=== PATIENT | female | born 1980 | race American Indian/Alaskan Native ===

== ENCOUNTER 2020-09-14 05:50 | Emergency (ER) | payer SELFPAY ==
[2020-09-14 07:29] VITALS: BP 185/112
--- NOTE | 2020-09-14 07:45 | Emergency Department Report ---
ED General Adult HPI - General Chief complaint: Extremity Injury, Lower Stated complaint: PAIN BOTH LEGS/ARMS AND HEADACHE Time Seen by Provider: 09/14/20 07:29 Source: patient Mode of arrival: Ambulatory Limitations: No Limitations - History of Present Illness Initial comments: Is a pleasant 39-year-old female presents to the emergency department with a chief complaint of bilateral leg pain that has been ongoing for the past many years but has been more constant and worse over the past few days. She reports pain is worse in the right leg and starts in her back and radiates down the back of her leg. She has been seen as a walk-in clinic recently and had x-rays of her back that were apparently normal. She denies any associated fever, chills, night sweats, headache, dizziness, blurry vision, nausea, vomit, diarrhea, chest pain, shortness of breath, weakness or any other associated symptoms. Her pain is aggravated by movement. She denies any alleviating factors. She has past medical history of hypertension and takes lisinopril but did not take her medications this morning. - Related Data Previous Rx's Medication Instructions Recorded Last Taken Type Naproxen [EC-Naprosyn] 500 mg PO BID #20 tablet. 09/14/20 Unknown Rx methOCARBAMOL [Robaxin TAB] 500 mg PO Q6H #20 tablet 09/14/20 Unknown Rx methylPREDNISolone [Medrol 4MG 4 mg PO ONCE #1 tab.ds.pk 09/14/20 Unknown Rx DOSEPAK (21 tabs)] Allergies Allergy/AdvReac Type Severity Reaction Status Date / Time No Known Allergies Allergy Unverified 09/14/20 07:26 ED Review of Systems ROS: Stated complaint: PAIN BOTH LEGS/ARMS AND HEADACHE Other details as noted in HPI Comment: All other systems reviewed and negative Constitutional: denies: chills, fever Eyes: denies: eye pain, eye discharge, vision change ENT: denies: ear pain, throat pain Respiratory: denies: cough, shortness of breath, wheezing Cardiovascular: denies: chest pain, palpitations Endocrine: no symptoms reported Gastrointestinal: denies: abdominal pain, nausea, diarrhea Genitourinary: denies: urgency, dysuria, discharge Musculoskeletal: as per HPI, arthralgia. denies: back pain, joint swelling Skin: denies: rash, lesions Neurological: denies: headache, weakness, paresthesias Psychiatric: denies: anxiety, depression Hematological/Lymphatic: denies: easy bleeding, easy bruising ED Past Medical Hx - Past Medical History Previous Medical History?: Yes Hx Hypertension: Yes - Surgical History Past Surgical History?: No - Social History Smoking Status: Never Smoker Substance Use Type: None - Medications Home Medications: Home Medications Medication Instructions Recorded Confirmed Last Taken Type Naproxen [EC-Naprosyn] 500 mg PO BID #20 tablet.dr 09/14/20 Unknown Rx methOCARBAMOL [Robaxin TAB] 500 mg PO Q6H #20 tablet 09/14/20 Unknown Rx methylPREDNISolone [Medrol 4MG 4 mg PO ONCE #1 tab.ds.pk 09/14/20 Unknown Rx DOSEPAK (21 tabs)] ED Physical Exam - General Limitations: No Limitations General appearance: alert, in no apparent distress - Head Head exam: Present: atraumatic, normocephalic - Eye Eye exam: Present: normal appearance, PERRL, EOMI Pupils: Present: normal accommodation - ENT ENT exam: Present: normal exam, normal orophraynx, mucous membranes moist - Neck Neck exam: Present: normal inspection, full ROM. Absent: tenderness, meningismus - Respiratory Respiratory exam: Present: normal lung sounds bilaterally. Absent: respiratory distress, wheezes, rales, rhonchi, stridor - Cardiovascular Cardiovascular Exam: Present: regular rate, normal rhythm, normal heart sounds. Absent: systolic murmur, diastolic murmur, rubs, gallop - GI/Abdominal GI/Abdominal exam: Present: soft, normal bowel sounds. Absent: distended, tenderness, guarding, rebound, rigid, pulsatile mass - Extremities Exam Extremities exam: Present: normal inspection, full ROM, tenderness (There is tenderness to palpation over the right upper gluteal muscles and paraspinal area of the lumbar spine. No midline tenderness to the cervical, thoracic or lumbar spine. There is steady gait.), normal capillary refill. Absent: joint swelling, calf tenderness (No posterior calf tenderness, normal DP and PT pulses. Negative Homans' sign bilaterally) - Back Exam Back exam: Present: normal inspection, full ROM, tenderness, muscle spasm, paraspinal tenderness. Absent: CVA tenderness (R), CVA tenderness (L), vertebral tenderness - Neurological Exam Neurological exam: Present: alert, oriented X3, CN II-XII intact, normal gait - Psychiatric Psychiatric exam: Present: normal affect, normal mood - Skin Skin exam: Present: warm, dry, intact, normal color. Absent: rash ED Course Vital Signs 09/14/20 07:26 Temperature 98.4 F Pulse Rate 86 Respiratory 16 Rate Blood Pressure 185/112 O2 Sat by Pulse 98 Oximetry - Reevaluation(s) Reevaluation #1: 09/14/20 09:37 09/14/20 09:38 ED Medical Decision Making - Medical Decision Making Patient nontoxic in no acute distress. She denies any saddle anesthesia, urinary or bowel incontinence, urinary retention making cauda equina or conus medullaris syndrome unlikely. She has no history of cancer making metastatic disease unlikely. She has no flank pain or hematuria and no CVA tenderness making nephrolithiasis unlikely. She had no dysuria, frequency, urgency, fever making pyelonephritis unlikely. She had no injury making spinal epidural hematoma or fracture unlikely. She had no fever or history of IV drug use making spinal epidural abscess unlikely. She has no pulsatile mass in the abdomen with normal equal bilateral femoral pulses making aortic aneurysm or aortic dissection unlikely patient was tender to palpation over the upper gluteal muscles over the sciatic region as well as to the paraspinal area of the lumbar spine. She had full flexion extension of the spine. She had no neurologic symptoms. I will treat her with anti-inflammatories, short course of steroids and muscle relaxers and recommended neurosurgery or orthopedic follow-up. She was instructed to return to the ER immediately she develops any change or worsening symptoms specifically urinary or bowel incontinence, urinary retention or saddle anesthesia. She verbalized understanding instructions and all of her questions were answered. I also educated the patient to go home and take her blood pre ssure medication and follow-up with her primary care doctor regarding blood pressure management. - Differential Diagnosis Strain, sprain brain, HNP Critical care attestation.: If time is entered above; I have spent that time in minutes in the direct care of this critically ill patient, excluding procedure time. ED Disposition Clinical Impression: Lumbosacral radiculopathy Disposition: DC-01 TO HOME OR SELFCARE Is pt being admited?: No Condition: Stable Instructions: Lumbosacral Radiculopathy Prescriptions: Naproxen [EC-Naprosyn] 500 mg PO BID #20 tablet. methylPREDNISolone [Medrol 4MG DOSEPAK (21 tabs)] 4 mg PO ONCE #1 tab.ds.pk methOCARBAMOL [Robaxin TAB] 500 mg PO Q6H #20 tablet Referrals: [facility] [Provider Group] - 3-5 Days Forms: Work/School Release Form(ED) Time of Disposition: 09:40
[2020-09-14 09:07] LABS: HCG Qualitative,Urine Negative (Negative)
== END 2020-09-14 09:47 | disposition home or self-care (01) ==
LOC: ED 05:50
DX: M54.17 Radiculopathy, lumbosacral region (principal); I10 Essential (primary) hypertension; Z79.899 Other long term (current) drug therapy
CPT/HCPCS: 81025; 99283

== ENCOUNTER 2021-12-10 19:21 | Emergency (ER) | payer BC, MEDICAID ==
[2021-12-10] MEDS ORDERED: ACETAMINOPHEN 500 MG TAB PO ONE (23:47)
[2021-12-10] MEDS ORDERED: hydrALAZINE 25 MG TAB PO ONE (23:47)
--- NOTE | 2021-12-11 00:28 | XRay Report ---
XR chest 1V ap INDICATION / CLINICAL INFORMATION: dyspnea. COMPARISON: None available. FINDINGS: Findings in the chest are accentuated by body habitus and phase of inspiration. SUPPORT DEVICES: None. HEART /PULMONARY VASCULATURE: No significant abnormality. LUNGS / PLEURA: Diminished lung volumes. No evidence of focal infiltrate. No sizable pleural effusion . No pneumothorax. ADDITIONAL FINDINGS: No significant additional findings. IMPRESSION: Diminished lung volumes. No definite acute cardiopulmonary disease. Signer Name: Primitivo Kat MD Signed: 12/11/2021 12:24 AM Workstation Name: [id number]
[2021-12-11 00:41] LABS: Mucus,Urine FEW /HPF
[2021-12-11 00:44] LABS: Color,Urine Yellow (Yellow)
[2021-12-11 00:45] LABS: Bilirubin,Urine Negative (Negative); Blood,Urine Small (Negative); PH,Urine 6.5 (5.0-7.0); Protein,Urine <15 mg/dL mg/dL (Negative)
[2021-12-11 00:53] LABS: Basophils % (Auto) 0.3 % (0.0-1.8); Eosinophils # (Auto) 0.1 K/mm3 (0.0-0.4); Hematocrit 36.4 % (30.3-42.9); Hemoglobin 12.2 gm/dl (10.1-14.3); Lymphocytes # (Auto) 1.5 K/mm3 (1.2-5.4); Lymphocytes % (Auto) 17.1 % (13.4-35.0); Mean Corpuscular HGB Conc 33 % (30-34); Mean Corpuscular Volume 85 fl (79-97); Monocytes # (Auto) 1.1 K/mm3 (0.0-0.8); Monocytes % (Auto) 12.2 % (0.0-7.3); Platelet Count 322 K/mm3 (140-440); Red Blood Count 4.27 M/mm3 (3.65-5.03); Red Cell Distribution Width 15.1 % (13.2-15.2)
[2021-12-11 00:58] LABS: Alanine Aminotransferase 15 units/L (7-56); Albumin 4.4 g/dL (3.9-5); BUN/Creatinine Ratio 11; Blood Urea Nitrogen 11 mg/dL (7-17); Hemolysis Index 5
--- NOTE | 2021-12-11 03:00 | Emergency Department Report ---
- General Chief Complaint: High BP Stated Complaint: BLURRES VISION/BLOOD PRESSURE/BODY HURT Source: patient Mode of arrival: Ambulatory Limitations: No Limitations - History of Present Illness Initial Comments: Patient is a 41-year-old -[place] female with a history of hypertension who presents to the ED with complaint of acute onset persistent diffuse body aches and pains, nasal and sinus congestion, frontal sinus pressure, persistent dry cough, intermittent fever and chills and generalized weakness for the last 1 week, worse in the last 3 days. Patient also states that her blood pressure has been significantly elevated despite taking her regular medications. Patient states that no one else at home is had similar symptoms. Patient denies chest pain, shortness of breath, nausea and vomiting or diarrhea, dysuria, urinary frequency and urgency, sore throat, dysphagia or dysphonia, hematemesis or hematochezia. MD Complaint: fever, cough, rhinorrhea, nasal congestion, sinus pain, other (Diffuse body aches and pains) -: Sudden, week(s) (1) Severity: moderate Severity scale (0 -10): 6 Quality: sharp, aching Consistency: constant Improves With: nothing Worsens With: nothing Associated Symptoms: denies other symptoms, fever, chills, myalgias, headache, rhinorrhea, nasal congestion, cough. denies: sore throat, stiff neck, chest pain, shortness of breath, abdominal pain, nausea, vomiting, diarrhea, dysuria, rash, confusion, weight loss, epistaxis, hoarseness, ear pain Treatments Prior to Arrival: none - Related Data Previous Rx's Medication Instructions Recorded Last Taken Type Naproxen [EC-Naprosyn] 500 mg PO BID #20 tablet.dr 09/14/20 Unknown Rx methOCARBAMOL [Robaxin TAB] 500 mg PO Q6H #20 tablet 09/14/20 Unknown Rx methylPREDNISolone [Medrol 4MG 4 mg PO ONCE #1 tab.ds.pk 09/14/20 Unknown Rx DOSEPAK (21 tabs)] Ascorbic Acid [Vitamin C] 1,000 mg PO BID #40 tab 12/11/21 Unknown Rx Benzonatate [Tessalon Perles] 100 mg PO Q8HR #30 cap 12/11/21 Unknown Rx Cetirizine HCl [Zyrtec 10mg tab] 10 mg PO DAILY #30 tab 12/11/21 Unknown Rx Ibuprofen [Motrin] 800 mg PO Q8HR PRN #30 tablet 12/11/21 Unknown Rx Zinc Acetate [Galzin 50mg CAP] 50 mg PO DAILY #30 cap 12/11/21 Unknown Rx Allergies Allergy/AdvReac Type Severity Reaction Status Date / Time No Known Allergies Allergy Unverified 09/14/20 07:26 ED Review of Systems ROS: Stated complaint: BLURRES VISION/BLOOD PRESSURE/BODY HURT Other details as noted in HPI Constitutional: chills, fever, malaise, weakness Eyes: denies: eye pain, eye discharge, vision change ENT: congestion. denies: ear pain, throat pain Respiratory: cough. denies: shortness of breath, wheezing Cardiovascular: denies: chest pain, palpitations Endocrine: no symptoms reported Gastrointestinal: denies: abdominal pain, nausea, vomiting, diarrhea Genitourinary: denies: urgency, dysuria, discharge Musculoskeletal: back pain, arthralgia, myalgia. denies: joint swelling Skin: denies: rash, lesions Neurological: headache. denies: weakness, paresthesias Psychiatric: denies: anxiety, depression Hematological/Lymphatic: denies: easy bleeding, easy bruising ED Past Medical Hx - Past Medical History Hx Hypertension: Yes - Social History Smoking Status: Never Smoker Substance Use Type: None - Medications Home Medications: Home Medications Medication Instructions Recorded Confirmed Last Taken Type Naproxen [EC-Naprosyn] 500 mg PO BID #20 tablet.dr 09/14/20 Unknown Rx methOCARBAMOL [Robaxin TAB] 500 mg PO Q6H #20 tablet 09/14/20 Unknown Rx methylPREDNISolone [Medrol 4MG 4 mg PO ONCE #1 tab.ds.pk 09/14/20 Unknown Rx DOSEPAK (21 tabs)] Ascorbic Acid [Vitamin C] 1,000 mg PO BID #40 tab 12/11/21 Unknown Rx Benzonatate [Tessalon Perles] 100 mg PO Q8HR #30 cap 12/11/21 Unknown Rx Cetirizine HCl [Zyrtec 10mg tab] 10 mg PO DAILY #30 tab 12/11/21 Unknown Rx Ibuprofen [Motrin] 800 mg PO Q8HR PRN #30 tablet 12/11/21 Unknown Rx Zinc Acetate [Galzin 50mg CAP] 50 mg PO DAILY #30 cap 07/08/22 Unknown Rx ED Physical Exam - General Limitations: No Limitations General appearance: alert, in no apparent distress - Head Head exam: Present: atraumatic, normocephalic, normal inspection - Eye Eye exam: Present: normal appearance, PERRL, EOMI Pupils: Present: normal accommodation - ENT ENT exam: Present: normal exam, normal orophraynx, mucous membranes moist, TM's normal bilaterally, normal external ear exam - Neck Neck exam: Present: normal inspection, full ROM. Absent: tenderness - Respiratory Respiratory exam: Present: normal lung sounds bilaterally. Absent: respiratory distress, wheezes, rales, rhonchi, chest wall tenderness, accessory muscle use, decreased breath sounds - Cardiovascular Cardiovascular Exam: Present: normal rhythm, tachycardia, normal heart sounds. Absent: systolic murmur, diastolic murmur, rubs, gallop - GI/Abdominal GI/Abdominal exam: Present: soft, normal bowel sounds. Absent: tenderness, gu arding, rebound, hyperactive bowel sounds, hypoactive bowel sounds, mass - Extremities Exam Extremities exam: Present: normal inspection, full ROM, normal capillary refill. Absent: tenderness - Back Exam Back exam: Present: normal inspection, full ROM. Absent: tenderness, CVA tenderness (R), CVA tenderness (L), muscle spasm, paraspinal tenderness, vertebral tenderness - Neurological Exam Neurological exam: Present: alert, oriented X3, CN II-XII intact, normal gait, reflexes normal - Psychiatric Psychiatric exam: Present: normal affect, normal mood - Skin Skin exam: Present: warm, dry, intact, normal color. Absent: rash ED Course Vital Signs 12/10/21 12/10/21 12/10/21 19:49 23:54 23:58 Temperature 100.5 F H Pulse Rate 115 H 112 H 112 H Respiratory 16 14 Rate Blood Pressure 178/104 158/93 Blood Pressure 158/93 [Left] O2 Sat by Pulse 100 100 Oximetry 12/11/21 03:15 Temperature Pulse Rate 102 H Respiratory 12 Rate Blood Pressure Blood Pressure 151/82 [Left] O2 Sat by Pulse 100 Oximetry ED Medical Decision Making - Lab Data Result diagrams: 12/11/21 00:21 12/11/21 00:21 - Radiology Data Radiology results: report reviewed, image reviewed [facility] [address] [place] [address] XRay Report Signed Patient: JAZ SCHUMACHER MR#: [id number] : 1980 Acct:[id number] Age/Sex: 41 / F ADM Date: 12/10/21 Loc: ED Attending Dr: Ordering Physician: BRAD HARE Date of Service: 12/10/21 Procedure(s): XR chest 1V ap Accession Number(s): [id number] cc: BRAD HARE Fluoro Time In Minutes: XR chest 1V ap INDICATION / CLINICAL INFORMATION: dyspnea. COMPARISON: None available. FINDINGS: Findings in the chest are accentuated by body habitus and phase of inspiration. SUPPORT DEVICES: None. HEART /PULMONARY VASCULATURE: No significant abnormality. LUNGS / PLEURA: Diminished lung volumes. No evidence of focal infiltrate. No sizable pleural effusion. No pneumothorax. ADDITIONAL FINDINGS: No significant additional findings. IMPRESSION: Diminished lung volumes. No definite acute cardiopulmonary disease. Signer Name: Jonathan Kat MD Signed: 12/11/2021 12:24 AM Workstation Name: [id number] Transcribed By: JS Dictated By: JONATHAN KAT MD Electronically Authenticated By: JONATHAN KAT MD Signed Date/Time: 12/11/2123 DD/ TD/TT: - Medical Decision Making This is a 41-year-old -Sy[place] female with a history of hypertension who presents to the ED with complaint of acute onset persistent diffuse body aches and pains, nasal and sinus congestion, frontal sinus pressure, persistent dry cough, intermittent fever and chills and generalized weakness for the last 1 week, worse in the last 3 days. Patient also states that her blood pressure has been significantly elevated despite taking her regular medications. Patient states that no one else at home is had similar symptoms. In the ED, patient is alert and oriented x3 and is not in any distress but tachycardic and febrile, as well as hypertensive in triage. Patient was treated for fever in the ED and was given medications for hypertension. Chest x-ray showed no acute cardiopulmonary abnormalities or pneumonitis. All lab test results were reviewed and are all nonactionable. On reevaluation, patient felt better, pain is well controlled, and fever also resolved as well as tachycardia. Patient symptoms are likely viral in etiology and therefore the patient was discharged and advised to obtain COVID-19 diagnostic test in any of the outpatient facilities to confirm diagnosis. Patient was advised to return to the ED immediately if symptoms get worse. Patient was otherwise advised to follow-up with her primary care physician in 7 to 10 days for reevaluation. - Differential Diagnosis Bronchitis; pneumonia; URI; sinusitis; influenza; COVID-19; Critical care attestation.: If time is entered above; I have spent that time in minutes in the direct care of this critically ill patient, excluding procedure time. ED Disposition Clinical Impression: Acute upper respiratory infection, Flu-like symptoms, Suspected COVID-19 virus infection Acute bronchitis Qualifiers: Bronchitis organism: other organism Qualified Code(s): J20.8 - Acute bronchitis due to other specified organisms Disposition: HOME / SELF CARE / HOMELESS Is pt being admited?: No Does the pt Need Aspirin: No Condition: Stable Instructions: Cough, Adult, [id number], Viral Respiratory Infection, [id number], Acute Bronchitis, Adult, [id number], Upper Respiratory Infection, Adult, [id number], COVID-19: How to Protect Yourself and Others - CDC, Prevent the Spread of COVID-19 if You Are Sick - CDC, Acute Bronchitis (ED) Additional Instructions: All lab test results were reviewed and are all nonactionable. Chest x-ray showed no acute cardiopulmonary abnormalities or pneumonitis. Therefore take medications with food, drink plenty of fluids, follow-up with your primary care physician in 7 to 10 days for reevaluation. Consider going for COVID-19 diagnostic testing in any of the outpatient facilities to ascertain your status. Return to the ED immediately if symptoms get worse. Prescriptions: Zinc Acetate [Galzin 50mg CAP] 50 mg PO DAILY #30 cap Ibuprofen [Motrin] 800 mg PO Q8HR PRN #30 tablet PRN Reason: Pain , Severe (7-10) Benzonatate [Tessalon Perles] 100 mg PO Q8HR #30 cap Ascorbic Acid [Vitamin C] 1,000 mg PO BID #40 tab Cetirizine HCl [Zyrtec 10mg tab] 10 mg PO DAILY #30 tab Referrals: [facility] [Provider Group] - 3-5 Days Forms: Work/School Release Form(ED) Time of Disposition: 03:04 Print Language: BELARUSIAN
[2021-12-11 03:16] VITALS: BP 151/82
== END 2021-12-11 03:32 | disposition home or self-care (01) ==
LOC: ED 19:21
DX: J06.9 Acute upper respiratory infection, unspecified (principal); J20.9 Acute bronchitis, unspecified; I10 Essential (primary) hypertension; Z20.822 Contact with and (suspected) exposure to COVID-19; Z79.899 Other long term (current) drug therapy
CPT/HCPCS: 71045; 80053; 81001; 84484; 84703; 85025; 99284